=== PATIENT | male | born 1945 | race Hispanic/Latino ===

== ENCOUNTER → 2018-03-04 | Outpatient (CLI) | payer MEDICARE ==
[~2018-03-04] MED LIST: AMLODIPINE BESYL5 MG PO; ASPIR 8181 MG PO; IOPAMIDOL 370 MG/ML 200 ML INFUS..BTL INJ ONE; LIPITOR20 MG PO; LISINOPRIL20 MG PO; LOSARTAN POTAS100 MG PO; OMEGA 3 1,0001 EACH PO; OMEPRAZOLE40 MG PO; SODIUM CHLORIDE 0.9% 250ML 250 ML ONE; SODIUM CHLORIDE 0.9% 50ML 50 ML ONE; VIT D3 PO
[2018-03-04 12:34] LABS: BLOOD UREA NITROGEN 18 mg/dL (7-26); BUN/CREATININE RATIO 24 (6-25); CREATININE, SERUM 0.76 mg/dL (0.72-1.25); EST GLOMERULAR FILTRATION RATE > 60 ML/MIN (60-)
--- NOTE | 2018-03-05 08:59 | Diagnostic Imaging Report ---
PROCEDURE: CT ABDOMEN & PELVIS W/WO CONTRAST TECHNIQUE: The abdomen and pelvis were scanned utilizing a multidetector helical scanner from the diaphragm to the lesser trochanter before and after the IV administration of Isovue 370 contrast and the oral administration of 900 cc of water. Coronal and sagittal multiplanar reformations were obtained. COMPARISON: None. INDICATIONS: GROSS HEMATURIA FINDINGS: LOWER THORAX: Coronary atherosclerosis. There is a 4 mm calcified granuloma in the left lower lobe. There is a 2 mm solid nodule in the lingula. HEPATOBILIARY: Diffuse fatty liver. Subcentimeter hepatic hypodensity in segment 4, likely representing a cyst. No biliary ductal dilatation. Status post cholecystectomy. SPLEEN: No splenomegaly. PANCREAS: No focal masses or ductal dilatation. ADRENALS: No adrenal nodules. KIDNEYS/URETERS: No evidence of hydronephrosis or stone. There is a hypodense filling defect in the left inferior pole calyx on coronal post contrast series 701 image 51 and axial series 6 image 63, without evidence of enhancement. A smaller non-enhancing filling defect is present in the right inferior pole calyx on series 6, image 68. Bilateral non-specific perinephric stranding is noted. PELVIC ORGANS/BLADDER: No evidence of bladder mass. Some layering dependent non-contrast material may represent hemorrhagic products or debris. PERITONEUM / RETROPERITONEUM: No free air or fluid. LYMPH NODES: No lymphadenopathy. Prominent non-specific 1 cm periportal lymph node on series 6, image 35. VESSELS: Atherosclerotic vascular calcifications. GI TRACT: No distention or wall thickening. Diverticulosis without CT evidence of diverticulitis. BONES AND SOFT TISSUES: No acute bony findings. IMPRESSION: A filling defect in the left inferior pole calyx and smaller filling defect in the right inferior pole calyx without definite enhancement, favored to represent blood clots, a neoplastic process is considered less likely although not excluded by imaging. Small amount of debris within the bladder, likely hemorrhagic products. No evidence of urinary stone or enhancing renal mass. Diffuse fatty liver. Dictated by: MATA MARTIN M.D. on 03/05/2018 at 9:07 Electronically approved by: MATA MARTIN M.D. on 03/05/2018 at 9:07
== END ==
LOC: CT 11:22
PROVIDERS: ATTEND Urology
DX: R31.0 Gross hematuria (principal)
CPT/HCPCS: 36415; 74178; 82565; 84520; J7050; Q9967

== ENCOUNTER → 2018-03-27 | Day surgery (SDC) | payer MEDICARE ==
--- NOTE | 2018-03-25 14:41 | Diagnostic Imaging Report ---
EXAMINATION: PA and lateral views of the chest. COMPARISON: None CLINICAL HISTORY: Preoperative study urological surgery DISCUSSION: The lungs are well-inflated. No focal airspace consolidation, pleural effusion, or pneumothorax. Linear opacity in the lingula may reflect focal scar or subsegmental atelectasis. Tortuosity and atherosclerotic calcification of the thoracic aorta with an otherwise normal cardiomediastinal contour. No acute osseous abnormalities. Surgical anchors project over the right humeral head. IMPRESSION: No acute cardiopulmonary abnormalities. Signed by: Dr. Lawrence Paulino M.D. on 03/25/2018 2:38 PM
[2018-03-25 14:50] LABS: BASOPHILS # (AUTO) 0.1 (0.0-0.1); BASOPHILS % 0.8 % (0.0-1.0); EOSINOPHILS # (AUTO) 0.1 (0.0-0.4); EOSINOPHILS % 1.7 % (0.0-6.0); HEMATOCRIT 39.4 % (38.2-49.6); HEMOGLOBIN 13.3 g/dL (14.0-18.0); LYMPHOCYTES # (AUTO) 1.2 (1.0-3.2); LYMPHOCYTES % 16.7 % (18.0-39.1); MEAN CORPUSCULAR HEMOGLOBIN 31.6 pg (28-32); MEAN CORPUSCULAR HGB CONC 33.8 g/dL (31-35); MEAN CORPUSCULAR VOLUME 93.6 fL (81-99); MONOCYTES # (AUTO) 0.5 (0.2-0.8); MONOCYTES % 7.4 % (4.4-11.3); NEUTROPHILS # (AUTO) 5.3 (2.1-6.9); NEUTROPHILS % 73.1 % (38.7-80.0); PLATELET COUNT 276 x10e3/uL (140-360); RED BLOOD COUNT 4.21 x10e6/uL (4.3-5.7); RED CELL DISTRIBUTION WIDTH 12.5 % (11.7-14.4)
[~2018-03-27] MED LIST changes: +CEFTRIAXONE SOD 1 GM VIAL ONE; +DEXAMETHASONE SOD PHOS INJ 4 MG/ML VIAL ONE; +EPHEDRINE SULFATE INJ 50 MG/10 ML SYR ONE; +FENTANYL CITRATE/PF 100MCG/2 ML INJ ONE; -IOPAMIDOL 370 MG/ML 200 ML INFUS..BTL INJ ONE; +IOPAMIDOL 610MG/1ML 300 MG/ML VIAL IV ONE; +LIDOCAINE HCL 2% LOCAL INJ 5 ML SDV VIAL INJ ONE; +MIDAZOLAM HCL 2 MG/2 ML VIAL ONE; +ONDANSETRON HCL INJ 2 MG/ML VIAL ONE; +PROPOFOL IV EMULSION 10 MG/ML 20 ML VIAL ONE; +SEVOFLURANE INHAL SOLN 250 ML PEN BTL ONE; -SODIUM CHLORIDE 0.9% 250ML 250 ML ONE; -SODIUM CHLORIDE 0.9% 50ML 50 ML ONE
--- OUTSIDE RECORDS SUMMARY | 2018-03-27 06:15 | XMS REPORT ---
Author Author [facility] Address Unknown Phone Unavailable Care Team Providers Care Senior Technical Editor Name Role Phone ALLYSSA GARAY Unavailable Unavailable Problems This patient has no known problems. Allergies, Adverse Reactions, Alerts This patient has no known allergies or adverse reactions. Medications This patient has no known medications. Results Test Description Test Time Test Comments Text Results Atomic Results Result Comments CHEST 2 VIEWS 2018-03-25 14:34:00 [place] [address] Patient Name: TORRI RUELAS MR #: [id number] : 1945 Age/Sex: 72/M Req #: [id number] Adm Physician: Ordered by: ALLYSSA GARAY MD Report #: [id number] Location: OR Room/Bed: Procedure: [id number] DX/CHEST 2 VIEWS Exam Date: 03/25/18 Exam Time: 1400 REPORT STATUS: Signed EXAMINATION: PA and lateral views of the chest. COMPAR RAYMOND: None CLINICAL HISTORY: Preoperative study urological surgery DISCUSSION: The lungs are well-inflated. No focal airspace consolidation, pleural effusion, or pneumothorax. Linear opacity in the lingula may reflect focal scar or subsegmental atelectasis. Tortuosity and atherosclerotic calcification of the thoracic aorta with an otherwise normal cardiomediastinal contour. No acute osseous abnormalities. Surgical anchors project over the right humeral head. IMPRESSION: No acute cardiopulmonary abnormalities. Signed by: Dr. Lisset Montemayor M.D. on 03/25/2018 2:38 PM Dictated By: LISSET MONTEMAYOR MD 37 Transcribed By: ABRAHAN on 03/25/181437 COPY TO: ALLYSSA GARAY MD CT ABDOMEN/PELVIS WOW 2018-03-05 09:07:00 [place] [address] Patient Name: TORRI RUELAS MR #: [id number] : 1945 Age/Sex: 72/M Req #: [id number] Adm Physician: Ordered by: ALLYSSA GARAY MD Report #: [id number] Location: CT Room/Bed: Procedure: [id number] CT/CT ABDOMEN/PELVIS WOW Exam Date: Exam Time: REPORT STATUS: Signed PROCEDURE: CT ABDOMEN PELVIS W/WO CONTRAST TECHNIQUE: The abdomen and pelvis were scanned utilizing a multidetector helical scanner from the diaphragm to the lesser trochanter before and after the IV administration of Isovue 370 contrast and the oral administration of 900 cc of water. Coronal and sagittal multiplanar reformations were obtained. COMPARISON: None. INDICATIONS: GROSS HEMATURIA FINDINGS: LOWER THORAX: Coronary atherosclerosis. There is a 4 mm calcified granuloma in the left lower lobe. There is a 2 mm solid nodule in the lingula. HEPATOBILIARY: Diffuse fatty liver. Subcentimeter hepatic hypodensity in segment 4, likely representing a cyst. No biliary ductal dilatation. Status post cholecystectomy. SPLEEN: No splenomegaly. PANCREAS: No focal masses or ductal dilatation. ADRENALS: No adrenal nodules. KIDNEYS/URETERS: No evidence of hydronephrosis or stone. There is a hypodense filling defect in the left inferior pole calyx on coronal post contrast series 701 image 51 and axial series 6 image 63, without evidence of enhancement. A smaller non- enhancing filling defect is present in the right inferior pole calyx on series 6, image 68. Bilateral non-specific perinephric stranding is noted. PELVIC ORGANS/BLADDER: No evidence of bladder mass. Some layering dependent non-contrast material may represent hemorrhagic products or debris. PERITONEUM / RETROPERITONEUM: No free air or fluid. LYMPH NODES: No lymphadenopathy. Prominent non-specific 1 cm periportal lymph node on series 6, image 35. VESSELS: Atherosclerotic vascular calcifications. GI TRACT: No distention or wall thickening. Diverticulosis without CT evidence of diverticulitis. BONES AND SOFT TISSUES: No acute bony findings. IMPRESSION: A filling defect in the left inferior pole calyx and smaller filling defect in the right inferior pole calyx without definite enhancement, favored to represent blood clots, a neoplastic process is con sidered less likely although not excluded by imaging. Small amount of debris within the bladder, likely hemorrhagic products. No evidence of urinary stone or enhancing renal mass. Diffuse fatty liver. Dictated by: MATA MARTIN M.D. on 03/05/2018 at 9:07 Electronically approved by: MATA MARTIN M.D. on 03/05/2018 at 9:07 Dictated By: MATA MARTIN MD 6 Transcribed By: TORI on 03/05/18906 COPY TO: ALLYSSA GARAY MD
[2018-03-27 10:50] VITALS: BP 149/78
--- NOTE | 2018-03-27 13:14 | Operative Report ---
DATE OF PROCEDURE: March 27, 2018 PREOPERATIVE DIAGNOSES 1. Gross hematuria. 2. Bilateral lower pole renal masses/filling defects on computerized axial tomography scan with contrast. 3. Prostate cancer, status post radiotherapy and prostatectomy. POSTOPERATIVE DIAGNOSES 1. Gross hematuria. 2. Bilateral lower pole renal masses/filling defects on computerized axial tomography scan with contrast. 3. Prostate cancer, status post radiotherapy and prostatectomy. 4. Ureteral stricture and radiation cystitis. PROCEDURES PERFORMED 1. Cystourethroscopy with right ureter catheterization and right retrograde pyelogram (separate procedure for gross hematuria). 2. Left-sided ureteroscopy with dilation of stricture (entirely separate procedure for left ureteral stricture). 3. Cystourethroscopy with insertion of left indwelling stent (entirely separate procedure for the diagnosis of left hydronephrosis). 4. Supervision of fluoroscopy for the ureteroscopy portion. 5. Supervision of fluoroscopy for stent portion. 6. Interpretation of retrograde pyelography. ANESTHESIA: General. ESTIMATED BLOOD LOSS: Minimal. COMPLICATIONS: None. INDICATIONS: Mr. Fall is a 72-year-old male with a history of gross hematuria found to have left and right renal filling defects. He and I had a long discussion in regard to the alternatives, risks and benefits including doing nothing, cystoscopy, retrograde pyelograms, possible ureteroscopy and indicated procedures. He voiced understanding of the options, alternatives, the risks and the benefits, and elected to proceed. PROCEDURE IN DETAIL: After informed consent was obtained, the patient was taken to the operative suite, placed supine on the operating table and underwent general anesthesia by the anesthesia service, placed in the dorsal lithotomy position and sterilely prepped and draped in the standard fashion for cystoscopy. A 21-Syrian cystoscope was inserted per urethra. There were bulbar urethral stricture seen. The prostate and bladder neck were slightly elevated. The scope was introduced. There was pallor and neovascularity of the bladder with petechiae consistent with radiation cystitis throughout the entire bladder. Bilateral ureteral orifices were stenotic in appearance. With moderate difficulty, they were catheterized with a 5-Syrian open-ended catheter. Bilateral retrograde pyelograms were performed. The right was normal. The left revealed narrowing especially in the distal pelvis. A filling defect was seen in the left renal pelvis on multiple images. A guidewire was inserted and an attempt was made after dilation to insert the ureteroscope that failed. At this time, the 7 x 26 cm stent was deployed with a coil in the renal pelvis and a coil in the patient's bladder to soft dilate this with a plan on returning in approximately 1 or 2 weeks for definitive ureteroscopy. SUPERVISION OF FLUOROSCOPY AND INTERPRETATION OF RETROGRADE PYELOGRAPHY: I was present throughout the entire procedure and supervised fluoroscopy. There was no radiologist present. Attention was turned toward the left and right ureteral orifices which were catheterized with a 5-Syrian, open-ended catheter. A retrograde pyelogram was performed. The right was normal. Left revealed distal ureteral stricture, proximal filling defect filling most of the renal pelvis. Postoperative views revealed left-sided ureteral stent in good position. Job#: [id number] RIMA cc:DR. JAYLA MEDEROS
== END | disposition home or self-care (01) ==
LOC: OR 06:12
PROVIDERS: ATTEND Urology
DX: N30.41 Irradiation cystitis with hematuria (principal); Y84.2 Radiological procedure and radiotherapy as the cause of abnormal reaction of the patient, or of later complication, without mention of misadventure at the time of the procedure; N13.5 Crossing vessel and stricture of ureter without hydronephrosis; I10 Essential (primary) hypertension; D41.00 Neoplasm of uncertain behavior of unspecified kidney; F17.210 Nicotine dependence, cigarettes, uncomplicated; Z85.46 Personal history of malignant neoplasm of prostate; Z90.79 Acquired absence of other genital organ(s); Z01.810 Encounter for preprocedural cardiovascular examination; Z01.812 Encounter for preprocedural laboratory examination; Z01.818 Encounter for other preprocedural examination; Z79.82 Long term (current) use of aspirin
CPT/HCPCS: 36415; 52332; 52344; 71046; 74420; 85025; 93005; C2617; J0696; J1100; J2001; J2250; J2405; J2704; Q9967

== ENCOUNTER → 2018-04-22 | Day surgery (SDC) | payer MEDICARE ==
[~2018-04-22] MED LIST changes: -EPHEDRINE SULFATE INJ 50 MG/10 ML SYR ONE
[2018-04-22 15:40] VITALS: BP 119/68
--- NOTE | 2018-04-22 15:56 | Operative Report ---
DATE OF PROCEDURE: April 22, 2018 UROLOGY OPERATIVE REPORT PREOPERATIVE DIAGNOSES 1. Left lower pole filling defect. 2. Left ureteral stricture. 3. Left ureteral stent. POSTOPERATIVE DIAGNOSES 1. Left lower pole filling defect. 2. Left ureteral stricture. 3. Left ureteral stent. PROCEDURES 1. Cystourethroscopy with removal of left indwelling stent (entirely separate procedure for the left indwelling stent). 2. Left-sided flexible ureteropyeloscopy (entirely separate procedure for left lower pole filling defect renal mass). 3. Supervision of fluoroscopy for ureteroscopy. 4. Supervision of fluoroscopy for removal of indwelling stent. 5. Interpretation of retrograde pyelography. ANESTHESIA: General. ESTIMATED BLOOD LOSS: Minimal. COMPLICATIONS: None. INDICATIONS FOR PROCEDURE: Mr. Fall is a 72-year-old prostate cancer survivor, who was found on retrograde pyelograms to have lower pole filling defect in the left kidney and a ureteral stricture. He now presents for definitive management of lower pole filling defect. We discussed the options, the alternatives, the risks and the benefits, and elected to proceed. PROCEDURE IN DETAIL: After informed consent was obtained, the patient was taken to the operative suite. He was placed supine on the operating table. He underwent general anesthesia by the anesthesia service. He was placed in dorsal lithotomy position and sterilely prepped and draped in the standard fashion for cystoscopy. A 21-Swiss cystoscope was inserted per urethra. A normal urethra was noted. Panendoscopy of the bladder revealed tumors, no stones. Ureteral orifice in anatomical location. The stent was seen extruding from the ureteral orifice and was grasped and removed entirely. The guidewire was inserted. Second safety wire was introduced. The flexible ureteroscope was advanced to the level of the previous stricture. Photograph was taken showing sufficient dilation and open scar tissue. The ureteroscope was advanced to the level of renal pelvis. The entire pelvis was mapped. There was a clot in the lower pole moiety, which was the filling defect seen. This was irrigated out and there was no more filling defect seen. Of note, there were several areas of Thierry plaques. Photographic image #1 saw this in great detail. At this time with removal of the clot, had no other filling defect seen. The safety wire was removed. The bladder was drained. The patient was awakened from anesthesia and transported to the recovery room in excellent condition. SUPERVISION OF FLUOROSCOPY AND INTERPRETATION OF RETROGRADE PYELOGRAPHY: I was present throughout the entire procedure and supervised the use of fluoroscopy. There was no radiologist present. Attention was turned toward the left ureteral orifice, which were catheterized. Ureteroscope retrograde pyelogram was performed with ureteroscope and all mapping of collecting system. Interim resolution of the lower pole filling defect. Job#: [id number] CQ
== END | disposition home or self-care (01) ==
LOC: OR 11:45
PROVIDERS: ATTEND Urology
DX: N13.5 Crossing vessel and stricture of ureter without hydronephrosis (principal); N28.89 Other specified disorders of kidney and ureter; Z46.6 Encounter for fitting and adjustment of urinary device; D41.00 Neoplasm of uncertain behavior of unspecified kidney; I45.10 Unspecified right bundle-branch block; Z85.46 Personal history of malignant neoplasm of prostate; Z79.82 Long term (current) use of aspirin; Z86.73 Personal history of transient ischemic attack (TIA), and cerebral infarction without residual deficits; Z92.3 Personal history of irradiation
CPT/HCPCS: 52351; 74420; C1758; J0696; J1100; J2001; J2250; J2405; J2704; Q9967

== ENCOUNTER → 2018-10-27 | Outpatient (CLI) | payer MEDICARE ==
[~2018-10-27] MED LIST changes: -CEFTRIAXONE SOD 1 GM VIAL ONE; -DEXAMETHASONE SOD PHOS INJ 4 MG/ML VIAL ONE; -FENTANYL CITRATE/PF 100MCG/2 ML INJ ONE; +IOPAMIDOL 370 MG/ML 200 ML INFUS..BTL INJ ONE; -IOPAMIDOL 610MG/1ML 300 MG/ML VIAL IV ONE; -LIDOCAINE HCL 2% LOCAL INJ 5 ML SDV VIAL INJ ONE; -MIDAZOLAM HCL 2 MG/2 ML VIAL ONE; -ONDANSETRON HCL INJ 2 MG/ML VIAL ONE; -PROPOFOL IV EMULSION 10 MG/ML 20 ML VIAL ONE; -SEVOFLURANE INHAL SOLN 250 ML PEN BTL ONE; +SODIUM CHLORIDE 0.9% 250ML 250 ML ONE
[2018-10-27 10:52] LABS: BLOOD UREA NITROGEN 21 mg/dL (7-26); BUN/CREATININE RATIO 27 (6-25); CREATININE, SERUM 0.79 mg/dL (0.72-1.25); EST GLOMERULAR FILTRATION RATE > 60 ML/MIN (60-)
--- NOTE | 2018-10-27 14:23 | Diagnostic Imaging Report ---
EXAMINATION: CT of the abdomen and pelvis with and without contrast. TECHNIQUE: Spiral CT images of the abdomen and pelvis were performed from the lung bases to the lesser trochanters after the intravenous administration of 100 cc Isovue-370. Imaging was performed in the prone position per CT urogram protocol. Coronal and sagittal reformatted images were obtained. COMPARISON: CT urogram 03/04/2018 CLINICAL HISTORY:Hematuria. Patient reports history of prostate surgery. DISCUSSION: ABDOMEN/PELVIS: LOWER THORAX:Subsegmental atelectasis in the dependent lingula and right middle lobe. Unchanged 4-5 mm nodule medial segment right lower lobe. Unchanged calcified granuloma left lower lobe. Mild bilateral lower lobe bronchiectasis unchanged. HEPATOBILIARY: Hypoattenuating lesion in hepatic segment 4A is too small to further characterize but likely to represent a small cyst. No additional focal hepatic lesion or intrahepatic biliary ductal dilatation. The gallbladder has been removed. SPLEEN: No splenomegaly. PANCREAS: No focal masses or ductal dilatation. ADRENALS: No adrenal nodules. KIDNEYS/URETERS: Nonspecific bilateral perinephric fat stranding. Precontrast images show no renal or ureteral calculi. No focal renal lesion. Excretory images show no filling defects within the right upper collecting system or ureter. There are filling defects in the dependent and nondependent portion of the left upper collecting system, as seen on series 6 image 91 and 94. When accounting for motion artifact, findings are similar when compared to the prior CT urogram. Additionally, there is a low-attenuation filling defect in the mid left ureter seen on series 6 image 131 which was not evident on the comparison. PELVIC ORGANS/BLADDER: Urinary bladder is unremarkable. Postsurgical changes of prostatectomy. PERITONEUM/RETROPERITONEUM: No free air or fluid. LYMPH NODES: No pelvic sidewall, retroperitoneal, or mesenteric lymphadenopathy. VESSELS: Limited evaluation due to scan timing. Atherosclerotic calcification of the abdominal aorta and major branch vessels without aneurysmal dilatation. GI TRACT: Extensive descending and sigmoid colon diverticulosis without wall thickening or adjacent inflammation. Appendix is not identified. No right lower quadrant inflammation. Stomach is collapsed with prominent rugal folds. No small bowel dilatation to suggest obstruction. BONES AND SOFT TISSUE: No osseous destructive lesions. Multilevel degenerative disc changes and facet arthropathy of the lumbar spine. No focal soft tissue abnormalities. No soft tissue abnormalities. IMPRESSION: Low attenuation filling defects in the left upper collecting system are similar to that noted on 03/04/2018 and likely represent blood products or inflammatory debris. New filling defect in the left ureter is also felt to be hemorrhagic or inflammatory. Synchronous transitional cell carcinoma is an additional consideration and repeat retrograde pyelography with biopsy should be considered. Signed by: Dr. Lawrence Paulino M.D. on 10/27/2018 2:20 PM
== END ==
LOC: CT 09:40
PROVIDERS: ATTEND Urology
DX: D41.00 Neoplasm of uncertain behavior of unspecified kidney (principal)
CPT/HCPCS: 36415; 74178; 82565; 84520; J7050; Q9967

== ENCOUNTER → 2019-03-05 | Day surgery (SDC) | payer MEDICARE ==
[2019-03-03 15:27] LABS: BASOPHILS # (AUTO) 0.1 (0.0-0.1); BASOPHILS % 1.1 % (0.0-1.0); EOSINOPHILS # (AUTO) 0.1 (0.0-0.4); EOSINOPHILS % 1.8 % (0.0-6.0); HEMATOCRIT 40.3 % (38.2-49.6); HEMOGLOBIN 13.1 g/dL (14.0-18.0); LYMPHOCYTES # (AUTO) 0.9 (1.0-3.2); LYMPHOCYTES % 15.8 % (18.0-39.1); MEAN CORPUSCULAR HEMOGLOBIN 30.1 pg (28-32); MEAN CORPUSCULAR HGB CONC 32.5 g/dL (31-35); MEAN CORPUSCULAR VOLUME 92.6 fL (81-99); MONOCYTES # (AUTO) 0.5 (0.2-0.8); MONOCYTES % 8.8 % (4.4-11.3); NEUTROPHILS # (AUTO) 3.9 (2.1-6.9); NEUTROPHILS % 72.1 % (38.7-80.0); PLATELET COUNT 278 x10e3/uL (140-360); RED BLOOD COUNT 4.35 x10e6/uL (4.3-5.7); RED CELL DISTRIBUTION WIDTH 13.1 % (11.7-14.4)
--- NOTE | 2019-03-03 15:47 | Diagnostic Imaging Report ---
Chest, 2 views, 03/03/2019. History: , Bladder surgery. Comparison: None available. Findings: The cardiomediastinal silhouette and pulmonary vasculature are within normal limits. There is tortuosity of the descending thoracic aorta. The lungs are clear without evidence of consolidation or pleural effusion. Degenerative changes are noted in the thoracic spine. Surgical screws are present in the right humeral head. There are no acute osseous or soft tissue abnormalities. Impression: No acute cardiopulmonary abnormality. Signed by: Trae Dodd on 03/03/2019 3:44 PM
[~2019-03-05] MED LIST changes: +CEFTRIAXONE SOD 1 GM/NS 50 ML 50 ML IV ONE; +DEXAMETHASONE SOD PHOS INJ 4 MG/ML VIAL ONE; +EPHEDRINE SULFATE INJ 50 MG/10 ML SYR ONE; +FENTANYL CITRATE/PF 100MCG/2 ML INJ ONE; +IOPAMIDOL 300MG/ML 50ML INFUS..BTL IV ONE; -IOPAMIDOL 370 MG/ML 200 ML INFUS..BTL INJ ONE; +LIDOCAINE HCL 2% LOCAL INJ 5 ML SDV VIAL INJ ONE; +MIDAZOLAM HCL 2 MG/2 ML VIAL ONE; +ONDANSETRON HCL INJ 2MG/ML 2ML 2 MG/ML VIAL ONE; +PROPOFOL IV EMULSION 10 MG/ML 20 ML VIAL ONE; +SEVOFLURANE INHAL SOLN 250 ML PEN BTL ONE; -SODIUM CHLORIDE 0.9% 250ML 250 ML ONE
[2019-03-05 08:35] VITALS: BP 142/82
--- NOTE | 2019-03-05 14:48 | Operative Report ---
DATE OF PROCEDURE: 03/05/2019 SURGEON: Magdi Dey MD PREOPERATIVE DIAGNOSES: 1. Gross hematuria. 2. Multiple ureteral filling defects, left side. POSTOPERATIVE DIAGNOSES: 1. Gross hematuria. 2. Multiple ureteral filling defects, left side. PROCEDURES: 1. Cystourethroscopy with bilateral ureteral catheterization and bilateral retrograde pyelogram (entirely separate procedure for gross hematuria). 2. Left-sided ureteroscopy (entirely separate procedure for renal filling defect). 3. Supervision of fluoroscopy for ureteroscopy and retrograde pyelogram portions. 4. Interpretation of retrograde pyelography. ANESTHESIA: General. ESTIMATED BLOOD LOSS: Minimal. COMPLICATIONS: None. INDICATIONS: Mr. Fall is a very pleasant 73-year-old male patient, who has previously seen a Dr. Meza and Hematology/Oncology at [facility] for prostate cancer, status post radical prostatectomy and radiation therapy. The patient presents with gross hematuria and ureteral filling defects by CT scan. He and I had a long discussion about alternatives, risks, and benefits of doing nothing, however, the patient did not stop his aspirin and fish oil as instructed. This will be for a diagnostic evaluation only. PROCEDURE IN DETAIL: After informed consent was obtained, the patient was taken to the operative suite, placed supine on the operating table, and underwent general anesthesia by Anesthesia Service. The patient was placed in the dorsal lithotomy position, sterilely prepped and draped in standard fashion for cystoscopy. A 21-Bahraini cystoscope was inserted per urethra. Normal urethra was noted. Panendoscopy of the bladder revealed radiation cystitis. No tumors or no stones in the bladder. Bilateral ureters were catheterized. Retrograde pyelogram was performed. On the right side, delicate ureter, delicate pelvocaliceal system, no evidence of filling defects, no evidence of hydronephrosis. On the left side, there were multiple filling defects starting in the distal ureter, large approximately 1 cm x 2 cm lesion just proximal to vessels in the collecting system. There is a gallbladder filling defect in the proximal ureter, lateral defect in the proximal ureter and the proximal collecting system at the [facility] had approximately 2 x 2 cm filling defect. The ureteroscope was advanced to the gallbladder filling defect in the proximal ureter. The several distal filling defects all corresponded the papillary tumors. Photographs of which were taken and the images 3, 4, and 5 consistent with transitional cell carcinoma at the gallbladder filling defect. Despite multiple attempts, could not let the ureteroscope to pass this lesion to determine whether the proximal lesions nor tumor as well. At this time with inability to access the proximal lesions as well as hemorrhagic cystitis with radiation cystitis and stent placement, I removed the ureteroscope and removed the guidewire. I will wake the patient and discuss the diagnosis with him and likely recommend referral to [facility] for [facility] radical nephroureterectomy. Supervision of fluoroscopy and interpretation of retrograde pyelography: I was present for the entire procedure and supervised fluoroscopy. There was no radiologist present. Attention was turned towards the left and right ureters, catheterized with 5- Bahraini open-ended catheter. Retrograde pyelogram was performed on the right side revealing delicate ureter, delicate pelvocaliceal systems. On the left side revealing multiple ureteral filling defects at the [facility] approximately 2 x 2 cm, proximal ureter approximately 1 cm, several 8 mm lesions, lateral lesion at the level of vessels of 1 cm x 2 cm lesion and distal smaller lesions as well. This corresponds cystoscopically to papillary tumors distally. IMPRESSION: Multiple left ureter collecting system filling defects corresponding to papillary tumors cystoscopically. MD LAZARO Hawkins/MODL /[id number] MTDD
== END | disposition home or self-care (01) ==
LOC: OR 05:16
PROVIDERS: ATTEND Urology
DX: R31.9 Hematuria, unspecified (principal); C61 Malignant neoplasm of prostate; R93.41 Abnormal radiologic findings on diagnostic imaging of renal pelvis, ureter, or bladder; R31.0 Gross hematuria; I10 Essential (primary) hypertension; N52.9 Male erectile dysfunction, unspecified; N30.41 Irradiation cystitis with hematuria; K21.9 Gastro-esophageal reflux disease without esophagitis; Z01.810 Encounter for preprocedural cardiovascular examination; Z01.812 Encounter for preprocedural laboratory examination; Z01.811 Encounter for preprocedural respiratory examination
CPT/HCPCS: 36415; 52351; 71046; 74420; 85025; 93005; C1758; C1788; J0696; J1100; J2001; J2250; J2405; J2704; J3010; Q9967

== ENCOUNTER 2020-11-17 19:32 | Emergency (ER) | payer MEDICARE ==
[~2020-11-17] VITALS: Ht 160 cm; Wt 79.8 kg
[~2020-11-17 19:32] MED LIST changes: -CEFTRIAXONE SOD 1 GM/NS 50 ML 50 ML IV ONE; -DEXAMETHASONE SOD PHOS INJ 4 MG/ML VIAL ONE; -EPHEDRINE SULFATE INJ 50 MG/10 ML SYR ONE; -FENTANYL CITRATE/PF 100MCG/2 ML INJ ONE; -IOPAMIDOL 300MG/ML 50ML INFUS..BTL IV ONE; -LIDOCAINE HCL 2% LOCAL INJ 5 ML SDV VIAL INJ ONE; -MIDAZOLAM HCL 2 MG/2 ML VIAL ONE; -ONDANSETRON HCL INJ 2MG/ML 2ML 2 MG/ML VIAL ONE; -PROPOFOL IV EMULSION 10 MG/ML 20 ML VIAL ONE; -SEVOFLURANE INHAL SOLN 250 ML PEN BTL ONE
[2020-11-17] MEDS ORDERED: LIDOCAINE JELLY 2% 10ML URO-JET TOP ONE (20:00)
[2020-11-17 21:17] LABS: CLARITY,URINE TURBID (CLEAR); COLOR,URINE RED (YELLOW); KETONES,URINE TRACE (NEGATIVE); LEUKOCYTE ESTERASE ,URINE TRACE (NEGATIVE); NITRITE,URINE NEGATIVE (NEGATIVE); PROTEIN,URINE DIPSTICK >=300 (NEGATIVE); URINE UROBILINOGEN 0.2 mg/dL (0.2 - 1)
[2020-11-17 21:18] LABS: RBC,URINE 21-50 /HPF (0-5)
== END 2020-11-17 21:41 | disposition home or self-care (01) ==
LOC: ER 20:00
DX: R31.9 Hematuria, unspecified (principal); R33.9 Retention of urine, unspecified; C61 Malignant neoplasm of prostate
CPT/HCPCS: 51700; 81001; 87086; 87186; 99283